=== PATIENT | female | born 1930 | race Caucasian/White ===

== ENCOUNTER 2016-10-04 08:11 | Inpatient (IN) | payer MEDICARE ==
[~2016-10-04] VITALS: Ht 175.2 cm; Wt 59.2 kg
--- NOTE | ~2016-10-04 | CON ---
[place], [place] REPORT OF CONSULTATION [facility]: [id number] UNIT #: [id number] ROOM: 526 DOCTOR: NEVILLE DONIS MD BIRTHDATE: [birth year] DOS: 10/04/2016 REASON FOR CONSULTATION: Septic shock, elevated troponin levels. 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 I saw her one time a year ago shortly after pacemaker had been placed by her primary butt welder at the [facility] in [place]. The history was that she had tachybrady syndrome that was managed with a VVI pacemaker for bradycardic rhythms and medications for tachycardias. She was hospitalized at the [facility] with worsening confusion. Her pacemaker interrogation was normal and an echocardiogram showed normal left ventricular size with moderate concentric left ventricular hypertrophy. Left ventricular regional wall motion and systolic function at that time were normal. She did have moderate aortic stenosis with a mean transvalvular gradient of 16 mmHg and estimated valve area of 1.2 cm2. The patient has been a [facility] of a penitentiary for the last year. The family found that she had had a bedsore about a month ago and this is being treated. She became more lethargic in the last 5 or 6 days and was noted to have pneumonia of her left lobe during that time. She continued to deteriorate, was therefore brought to the hospital today. It was felt that she was probably septic. She was treated with fluids and antibiotics. Troponin levels were obtained and were elevated at 0.801 and Cardiology was asked to see her. An echocardiogram was done today, which shows that her left ventricle is still normal in size, but now globally hypokinetic with akinesis to dyskinesis of the septum. Estimated ejection fraction is now 15%. There is Doppler evidence for stage 3 diastolic relaxation abnormalities, moderate to severe aortic stenosis is present. The aortic valve, now has obvious vegetations. My suspicion is that within the last week or two she developed endocarditis and then embolized vegetation into her left anterior descending coronary artery causing the myocardial damage that we are seeing today. PAST MEDICAL HISTORY: Includes the followin. Atrial fibrillation with rapid ventricular response. 2. Bradycardia associated with tachybrady syndrome. 3. Alzheimer's disease with progressive mental status changes. 4. History of recurrent urinary tract infections. 5. History of ventricular tachycardia in the past, but not well documented. It is notable that this morning when she presented to the Emergency Room, she did have a run of ventricular tachycardia. 6. History of knee replacement. 7. Placement of a permanent pacemaker for management of tachybrady syndrome about 07/2015. Device is a [employer] pacemaker. MEDICATIONS: Prior to admission: DuoNeb q.i.d. p.r.n. wheezing, Augmentin 875 mg p.o. b.i.d., Eliquis 2.5 mg b.i.d., digoxin 125 mcg daily, diltiazem CD 360 mg daily, furosemide 20 mg p.o. daily, hydroxyzine 25 mg q. 6 hours p.r.n., lisinopril 20 mg daily, mirtazapine 15 mg daily, quinidine sulfate 324 mg b.i.d. and vitamin D 400 units daily. [place], [place] REPORT OF CONSULTATION NAME: ADITYA VEGA UNIT #: [id number] ROOM: 526 DOCTOR: NEVILLE DONIS MD BIRTHDATE: [birth year] ALLERGIES: The patient lists allergies to PREDNISONE. REVIEW OF SYSTEMS: Very difficult as the patient is lethargic and almost obtunded. The family states that she had 1 good day about 5 days ago, but has been more lethargic and essentially anorectic since then. The family denies that she has had any acute chest pain that they are aware of. FAMILY HISTORY: Noncontributory at this time. SOCIAL HISTORY: The patient resides in a penitentiary and does not currently drink or smoke. PHYSICAL EXAMINATION: GENERAL: An elderly, frail appearing white female who is arousable, but does not respond appropriately to voice or commands. VITAL SIGNS: Pulse is 137 and irregularly irregular, blood pressure is 80/47. She has temperature of 99.1. She weighs 59.2 kilograms and has a body mass index of 19.3. HEENT: Normocephalic, atraumatic. Extraocular muscles are intact. Sclerae are clear. Pupils are round and react to light. The oral mucosa is moist. Tongue is midline. NECK: Supple. She does have mild jugular distention with hepatojugular reflux. Carotids are full. She does have transmitted murmurs into the carotids bilaterally. LUNGS: Respirations are somewhat labored. She does have coarse crackles over her left lung. Her right lung is fairly clear. HEART: Has an irregularly irregular rhythm. She has grade 4/6 harsh systolic ejection murmur along the left sternal border. I did not hear diastolic murmur or any gallops. The PMI is slightly displaced laterally and has no precordial heave, lift or thrill. ABDOMEN: Soft and normally active without masses, organomegaly or bruits. EXTREMITIES: Showed trace edema bilaterally in the legs. LABORATORY DATA: I reviewed the electrocardiogram from this morning and it did show wide complex tachycardia consistent with ventricular tachycardia. I also reviewed the patient's echocardiogram done today. It does show a normal size left ventricle with moderate concentric left ventricular hypertrophy. The anterior wall was slightly thinned, but akinetic to dyskinetic while the other warren are hypokinetic. Overall left ventricular systolic function is severely impaired with an ejection fraction of 15%. There is Doppler evidence for stage 3 left ventricular diastolic relaxation abnormalities. The aortic valve is moderately to severely stenosed with a valve area of 0.9 cm2. Obvious mobile vegetations are seen on the aortic valve. She also does have mild aortic insufficiency. IMPRESSION: 1. Shock. This most likely is a combination of septic shock and cardiogenic shock. 2. Endocarditis involving the aortic valve. [place], [place] REPORT OF CONSULTATION NAME: ADITYA VEGA UNIT #: [id number] ROOM: 526 DOCTOR: NEVILLE DONIS MD BIRTHDATE: [birth year] 3. Recent acute myocardial injury involving the anterior septum with severely impaired left ventricular systolic function. 4. Dementia. 5. History of tachybrady syndrome, with VVI pacemaker in place. 6. History of recurrent urinary tract infections. 7. History of bedsore. PLAN: I had a long and darlene discussion with the patient's two daughters and son at her bedside. 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 I can in vision a scenario where she became bacteremic either from recurrent urinary tract infections, her pneumonia or her bedsore. This seeded the abnormal aortic valve. From there, she easily could have embolized her left anterior descending coronary artery causing the infarction that I can see on the ultrasound and resulting in the elevated troponin levels that we have recorded. This is an incredibly complex situation. Adequate treatment would require long-term intravenous antibiotic therapy, possible aortic valve replacement, removal of her pacemaker with subsequent replacement, etc. The patient does have significant dementia and would not understand why we are doing all of these things to her. Certainly, given her age and frailty, some of these procedures could result in her demise. From my perspective, I think that her prognosis is very, very poor and that we should emphasize comfort in her future care. I believe that the family is going to make that decision as well and will probably change in her status to comfort care only. We will remain available to see her as needed and I thank the hospitalist group for asking our advice regarding her care. NEVILLE DONIS MD CM:CONSTR:REPORT OF CONSULTATION 1720 TM 10/23/16 0713 [email or web address]
--- NOTE | ~2016-10-04 | CON ---
[place], [place] REPORT OF CONSULTATION NAME: ADITYA VEGA UNIT #: [id number] ROOM: 526 DOCTOR: ML HARVEY MD BIRTHDATE: [birth year] DOS: 10/04/2016 NEPHROLOGY CONSULTATION. REASON FOR CONSULTATION: Acute kidney injury, on a stat basis. REQUESTING PHYSICIAN: Cl Morrison, hospitalist service. HISTORY OF PRESENT ILLNESS: The patient is an 86-year-old woman who has an unfortunate history of dementia and is not able to provide any medical history to me. She is also septic at this time. She presented to the hospital with altered mental status and was in [facility] for some time. She was having increased cough and weakness, decreased p.o. intake and more lethargy. She had a chest radiograph done and was started on oral medications according to the family who provided most of the history to me. She was started on Augmentin. According to the family, she was also doing fairly well just this past Saturday, Father's Day when they saw her. She normally at baseline, answers with 1 or 2 word responses to questions. She recognizes family members still, it seems but she has significant need for assistance with her activities of daily living. She is on Eliquis chronically and Digoxin by a double needle stitcher through the [facility] group, Dr. Pompa, previously . She was on Lasix 20 mg daily as well as lisinopril 20 mg daily. She has a history of pacemaker insertion for passing out and anxiety spells and low heart rate. There is an echocardiogram from August of last year, which showed normal left ventricular size with moderate LVH, regional wall motion was preserved as well as ejection fraction preserved, marked bilateral atrial enlargement was noted with moderate aortic stenosis and a valve gradient of 16 and a valve area of 1.2 cm2. Moderate tricuspid insufficiency with some elevated right systolic pressures were also noted by the interpreting double needle stitcher. She has been noted on x-ray findings to have left lower lobe consolidation on my review of that, right lung appears clear at this time. She normally does swell according to the family and is without significant edema at this time. Her initial troponin was 0.801. Urinalysis has not been sent yet as she has been anuric. Initial chemistry showed sodium 148, potassium 6.8, chloride of 117, bicarbonate 22, BUN 104, creatinine 3.15, earlier this month, it was 1.66 and last month it was 1.91. In July and June of this year, it was 0.95. She was significantly hypotensive with systolics in the 70s/30s. Her heart rate was up the 140s at one point, with a temperature of 104.7. Her temperature is down to 99.1 and repeat vital signs have been requested. She is on a nonrebreather at this time. Blood gases not been obtained so far. The patient was initially a DNR comfort care, but the family, son and daughter who are the dual POAs, felt that treatment with medications would be recommended to see if her body can recover without the use of anything like mechanical ventilation or heroic measures, but they are comfortable with IV fluids, medications such as antibiotics but they would not want dialysis or pressors at this time. Her lactic acid level was actually pretty good at 1.5. Her white blood cell count was now elevated at 8.1. Her hemoglobin was 11.2 and her platelets were 325,000. She does have a left shift. She was given Kayexalate enema, questionable effectiveness with the ER workup and blood cultures have been sent, so far a small area of breakdown on her coccyx was also noted. The patient was ordered to start renally dosed Levaquin, [place], [place] REPORT OF CONSULTATION NAME: ADITYA VEGA UNIT #: [id number] ROOM: 526 DOCTOR: ML HARVEY MD BIRTHDATE: [birth year] vancomycin and piperacillin and tazobactam. She was given 1 liter of normal saline in the ER, 1 liter on the floor, so far. Blood pressure still in the moderate to low side and urine output remains very poor. She was given 1 amp of bicarbonate and calcium gluconate as well as IV insulin and D50. REVIEW OF SYSTEMS: Cannot be obtained from the patient at this time. PAST MEDICAL, FAMILY AND SOCIAL HISTORY: Cannot be obtained from the patient, but from the family and was reviewed. She was a resident at [facility]. She has a history of AFib, Alzheimer's disease, atrial fibrillation, bradycardia, pacemaker, hypertension, degenerative joint disease, sacral wound, chronic pain, anxiety, hyponatremia, urinary tract infection, vitamin D deficiency. PAST SURGICAL HISTORY: Includes cataract, foot and knee surgeries, pacemaker. SOCIAL HISTORY: Did not have any acute toxic abuses. FAMILY HISTORY: Negative for renal failure. PHYSICAL EXAMINATION: VITAL SIGNS: Reviewed. GENERAL: Lethargic and poorly communicative at all. Eyes do open, but does not follow or track with me. Pupils are equal, sluggish. HEAD AND NECK: Sclerae are anicteric. Oropharynx appears dry. NECK: Supple, slight increased in JVP. No palpable masses. LUNGS: Bilateral rhonchi, left greater than right, lungs otherwise without wheeze or stridor. CARDIOVASCULAR: Tachycardic. No audible rub. Slight murmur is heard, systolic. Pulses are decreased. ABDOMEN: Soft, nontender. Slight distention and tenderness, perhaps in the lower abdomen. No rebound or guarding appreciable. BACK: Without specific tenderness. There is cm areas of skin breakdown over the right coccyx area. Otherwise, skin is without diffuse rashes. EXTREMITIES: Lower extremities, trace edema, perhaps present in the past, does appear that it is improved from a chronic edema state. NEUROLOGIC: Cannot assess motor and sensory function grossly, pain sensation does appear intact. LABORATORIES AND DIAGNOSTICS: Chest radiograph personally reviewed. Troponin 0.8. Sodium was 148, potassium 6.8, chloride 117, bicarbonate 22, BUN is 104, creatinine 3.15, glucose 151, calcium 8.3. Bilirubin 0.3, AST 38, ALT 45; alkaline phosphatase 117, albumin 2.5. Blood cultures and influenza pending. Past echo reviewed as above. ASSESSMENT AND PLAN: 1. Severe acute kidney injury, likely sepsis mediated acute tubular necrosis, possible prerenal state and some reverse bilirubin may be present, but does appear to have multisystem organ failure and severe sepsis. Given the patient's [place], [place] REPORT OF CONSULTATION NAME: ADITYA VEGA UNIT #: [id number] ROOM: 526 DOCTOR: ML HARVEY MD BIRTHDATE: [birth year] code status of DNR arrest, plans for IV fluids and antibiotics were discussed with the patient's children who are her dual POAs. At this point, they do not want any CPR, intubations, dialysis and pressor support. I would continue IV fluids and monitor serial electrolytes. I have ordered a renal panel for now. She has specifically hypernatremia, hyperkalemia, mild to moderate metabolic acidosis developing. The Kayexalate was given for potassium, but I suspect it is not going to be as useful at this point. Correction of acidosis and renal failure is going to be paramount. If there is no significant improvement, then consideration for transition to palliative and hospice care is recommended, involving them early may be a best case scenario. In terms of anemia, she is fairly stable, watch for any drop with IV volume expansion and some dilutional anemia. Fever should come down with antibiotics, tailor antibiotics per the culture data. The patient has a history of preserved ejection fraction, but moderate aortic stenosis and atrial fibrillation. At this point, likely has an appropriate tachycardia in response to sepsis. Follow with volume expansion and monitor this. She does have a pacemaker and possibility of an endovascular infection from that must be raised as well. Continue pneumonia therapy and treatment with respiratory treatments and oxygen support. Thank you very much for the kind consultation. ML HARVEY MD CM:CONSTR:REPORT OF CONSULTATION 1447 10/04/16 1524 interface
--- NOTE | ~2016-10-04 | PR ---
[place], [place] PROGRESS NOTE NAME: [facility]GA [id number] UNIT #: [id number] ROOM: 526 DOCTOR: NEVILLE DONIS MD BIRTHDATE: [birth year] DOS: 10/05/2016 CARDIOLOGY PROGRESS NOTE. SUBJECTIVE: The patient was seen at her bedside with multiple family members in attendance. She remains obtunded; however, she does occasionally arouse enough to speak a few words and then go back to sleep again. Her blood pressure remains very low and she remains in atrial fibrillation with a rapid ventricular response. She does not appear uncomfortable. Her breathing does not appear to be labored. PHYSICAL EXAMINATION: VITAL SIGNS: Today, her pulse is 134 and irregularly irregular. Her blood pressure is 56/31. She is afebrile. She weighs 59.2 kilograms with a body mass index of 19.3. HEENT: Normocephalic, atraumatic. Extraocular muscles are intact. Her oral mucosa is moist. NECK: Supple. She does have jugular distention with hepatojugular reflux. Carotids are full. LUNGS: Respirations are unlabored. She does have coarse crackles at the left base. However, the right lung is clear. HEART: Has an irregularly irregular rapid rhythm. She has a grade 3/6 systolic ejection murmur along the left sternal border. I did not hear any diastolic murmurs. ABDOMEN: Benign. EXTREMITIES: Showed trace edema bilaterally. LABORATORY DATA: Her monitor shows atrial fibrillation with rapid ventricular response. IMPRESSION: 1. Endocarditis. 2. Recent acute anterior wall myocardial infarction. 3. Ischemic cardiomyopathy with ejection fraction of about 15%. PLAN: I did have a long discussion with the patient's son and daughter. They are reluctant to change her code status to comfort care only and would like us to continue fluids, antibiotics, etc. They are strongly committed, however, to avoiding intubation, CPR, pacemaker insertion, etc. They do understand that the patient is in her last days, but they are still resistant to hospice care. There are afraid that hospice care may accelerate her demise. Since she appears comfortable at this time, they are not anxious to make any changes. We will remain available to be supportive as needed, but at this point, we have nothing more to offer from a cardiac point of view. I thank the hospitalist group for asking our advice regarding her care. [place], [place] PROGRESS NOTE NAME: ADITYA VEGA UNIT #: [id number] ROOM: 526 DOCTOR: NEVILLE DONIS MD BIRTHDATE: [birth year] NEVILLE DONIS MD CM:PNVICKY [id number] NEVILLE DONIS MD 10/06/16 0447 interface
[~2016-10-04 08:11] MED LIST: 'TENORMIN50 MG PO; ALENDRONATE SOD70 M1; ARICEPT10 M1 PO; ASPI-COR81 M1 PO; ASPIRIN81 M1 PO; ASPIRIN81 MG PO; ATENOLOL50 M1 PO; BACTRIM DS 8001 TAB PO; CALTRATE 600 +1 TAB PO; CALTRATE 600600 MG PO; CARDIZEM CD180 MG PO; COUMADIN5 M1 PO; DIGOXIN0.125 MG PO; DILTIAZEM CD240 MG PO; DILTIAZEM180 MG PO; DIOVAN160 MG PO; ELIQUIS2.5 M1 PO; GALANTAMINE8 MG PO; HYDROXYZINE PAM25 M1 PO; JANTOVEN4 MG PO; JANTOVEN5 MG PO; KCL PO; LISINOPRIL40 MG PO; MACROBID100 M1 PO; NAMENDA-5 PO; NAMENDA-7 PO; PRINIVIL40 MG PO; PYRIDIUM200 MG PO; RAZADYNE PO; RECLAST5 MG/100 M IV; THERAGRAN1 TA1; THEREMS H PO; TOPROL XL25 MG PO; VITAMIN D32000 IU PO; VITAMIN D400 I1 PO; VITAMIN E100 UNI1 PO; VITAMIN E1000 IU PO; XANAX0.25 MG PO; XANAX0.5 MG PO; ZOLOFT25 MG PO; ZOLOFT50 MG PO
[2016-10-04] MEDS ORDERED: AUGMENTIN 875-875 MG PO (08:23)
[2016-10-04] MEDS ORDERED: LASIX20 MG PO (08:24)
[2016-10-04] MEDS ORDERED: REMERON15 M2 PO (08:25)
[2016-10-04 08:26] VITALS: BP 99/63
[2016-10-04] MEDS ORDERED: NEUDEXT PO (08:27)
[2016-10-04] MEDS ORDERED: DUONEB 3 MG/3 ML3 M1 INH (08:28)
[2016-10-04 08:53] LABS: BASO % 0.1 % (0.0-1.0); HEMOGLOBIN 11.2 g/dl (12.0-16.0); IG # 0.1 10*3/uL (0.0-0.1); LYMPH % 12.8 % (27.0-41.0); MEAN CELL VOLUME 95.1 fl (81.0-99.0); MEAN CORPUSCULAR HGB 28.8 pg (27.0-31.0); MEAN CORPUSCULAR HGB CONC 30.3 g/dl (33.0-37.0); MEAN PLATELET VOLUME 9.7 fl (9.6-12.3); MONO # 0.7 10*3/uL (0.1-1.0); MONO % 8.8 % (3.0-9.0); NEUT # 6.3 10*3/uL (2.3-7.9); NEUT % 77.4 % (47.0-73.0); PLATELET COUNT AUTOMATED 325 10*3/uL (130-400); RED BLOOD COUNT 3.89 10*6/uL (4.10-5.10); RED CELL DISTRI WIDTH 15.4 % (0-14.5); WHITE BLOOD COUNT 8.1 10*3/uL (4.8-10.8)
[2016-10-04 09:10] LABS: ALBUMIN 2.5 gm/dl (3.1-4.5); BILIRUBIN, TOTAL 0.3 mg/dl (0.2-1.0); TOTAL PROTEIN 7.3 gm/dL (6.4-8.2)
[2016-10-04 09:22] LABS: POTASSIUM 6.8 mmol/L (3.5-5.1)
[2016-10-04 11:17] VITALS: BP 102/59
[2016-10-04 12:15] VITALS: BP 70/30
[2016-10-04 12:36] VITALS: BP 71/38
[2016-10-04 14:37] LABS: ALBUMIN 2.1 gm/dl (3.1-4.5); PHOSPHOROUS 5.9 mg/dL (2.5-4.9)
[2016-10-04 14:42] LABS: POTASSIUM 6.1 mmol/L (3.5-5.1)
[2016-10-04 16:00] VITALS: BP 80/47
[2016-10-04 17:04] LABS: ALBUMIN 2.2 gm/dl (3.1-4.5); PHOSPHOROUS 6.7 mg/dL (2.5-4.9)
[2016-10-04 17:07] LABS: POTASSIUM 6.4 mmol/L (3.5-5.1)
[2016-10-04 20:00] VITALS: BP 77/53
[2016-10-05] VITALS: BP 64/49
[2016-10-05 04:00] VITALS: BP 77/53
[2016-10-05 06:53] LABS: BASO % 0.1 % (0.0-1.0); HEMATOCRIT 36.2 % (37.0-47.0); HEMOGLOBIN 10.6 g/dl (12.0-16.0); IG # 0.1 10*3/uL (0.0-0.1); LYMPH # 0.8 10*3/uL (1.3-4.4); LYMPH % 8.1 % (27.0-41.0); MEAN CORPUSCULAR HGB 29.1 pg (27.0-31.0); MEAN CORPUSCULAR HGB CONC 29.3 g/dl (33.0-37.0); MEAN PLATELET VOLUME 9.7 fl (9.6-12.3); MONO # 0.7 10*3/uL (0.1-1.0); NEUT # 7.9 10*3/uL (2.3-7.9); NEUT % 84.2 % (47.0-73.0); RED BLOOD COUNT 3.64 10*6/uL (4.10-5.10); RED CELL DISTRI WIDTH 15.7 % (0-14.5); WHITE BLOOD COUNT 9.4 10*3/uL (4.8-10.8)
[2016-10-05 06:54] LABS: MEAN CELL VOLUME 99.5 fl (81.0-99.0); PLATELET COUNT AUTOMATED 212 10*3/uL (130-400)
[2016-10-05 07:20] LABS: INTERNATIONAL NORM RATIO 1.2 (2.0-3.5); PROTHROMBIN TIME 12.7 SECONDS (9.0-12.4)
[2016-10-05 07:28] LABS: ALBUMIN 2.1 gm/dl (3.1-4.5); FOLIC ACID 19.7 ng/mL (>5.38); FREE T4 1.04 ng/dl (0.76-1.46); MAGNESIUM 2.4 mg/dL (1.5-2.1); VITAMIN D, 25-HYDROXY 39.1 ng/mL (30-100)
[2016-10-05 07:33] LABS: BILIRUBIN, TOTAL 0.3 mg/dl (0.2-1.0); PHOSPHOROUS 5.9 mg/dL (2.5-4.9); THYROID STIM HORMONE (HS) 0.347 uIU/ml (0.358-4.75); TOTAL PROTEIN 6.2 gm/dL (6.4-8.2)
[2016-10-05 07:47] LABS: POTASSIUM 6.1 mmol/L (3.5-5.1)
[2016-10-05 08:29] VITALS: BP 56/31
[2016-10-05 12:00] VITALS: BP 84/54
[2016-10-05 16:00] VITALS: BP 67/42
[2016-10-05 20:00] VITALS: BP 96/62
[2016-10-06] VITALS: BP 77/45
[2016-10-06 08:00] VITALS: BP 78/29
== END 2016-10-06 12:10 | disposition expired | DRG 871 ==
LOC: ED 08:11 → 5E 09:59 → EDHOLD 09:59 → 5E 10:16 → ICCU 13:23 → 5E 13:45
PROVIDERS: Emergency Medicine; Internal Medicine; Internal Medicine Nephrology
DX: A41.9 Sepsis, unspecified organism (principal); J15.6 Pneumonia due to other Gram-negative bacteria; I21.4 Non-ST elevation (NSTEMI) myocardial infarction; J96.01 Acute respiratory failure with hypoxia; N17.0 Acute kidney failure with tubular necrosis; I33.0 Acute and subacute infective endocarditis; G93.41 Metabolic encephalopathy; E43 Unspecified severe protein-calorie malnutrition; L89.152 Pressure ulcer of sacral region, stage 2; I50.41 Acute combined systolic (congestive) and diastolic (congestive) heart failure; E87.0 Hyperosmolality and hypernatremia; I47.2 Ventricular tachycardia; Z68.1 Body mass index [BMI] 19.9 or less, adult; I95.9 Hypotension, unspecified; I27.2 Other secondary pulmonary hypertension; E87.5 Hyperkalemia; I25.5 Ischemic cardiomyopathy; I48.2 Chronic atrial fibrillation; I11.0 Hypertensive heart disease with heart failure; G30.9 Alzheimer's disease, unspecified; F02.80 Dementia in other diseases classified elsewhere, unspecified severity, without behavioral disturbance, psychotic disturbance, mood disturbance, and anxiety; M79.7 Fibromyalgia; I49.5 Sick sinus syndrome; E55.9 Vitamin D deficiency, unspecified; M19.90 Unspecified osteoarthritis, unspecified site; I08.2 Rheumatic disorders of both aortic and tricuspid valves; R65.20 Severe sepsis without septic shock; Z66 Do not resuscitate; Z96.659 Presence of unspecified artificial knee joint; Z53.29 Procedure and treatment not carried out because of patient's decision for other reasons; Z88.8 Allergy status to other drugs, medicaments and biological substances; Z98.49 Cataract extraction status, unspecified eye; Z95.0 Presence of cardiac pacemaker; Z80.9 Family history of malignant neoplasm, unspecified; Z82.49 Family history of ischemic heart disease and other diseases of the circulatory system; Z83.3 Family history of diabetes mellitus; Z79.899 Other long term (current) drug therapy